=== PATIENT | female | born 1985 | race Hispanic/Latino ===

== ENCOUNTER 2021-12-17 05:18 | Emergency (ER) | payer MEDICAID ==
[2021-12-17 05:23] VITALS: BP 154/87
--- NOTE | 2021-12-17 06:27 | XRay Report ---
RIGHT FOOT, 3 VIEWS INDICATION / CLINICAL INFORMATION: INJURY 2 DAYS. COMPARISON: None available. FINDINGS: Mild hallux valgus deformity. No acute fracture or dislocation. IMPRESSION: No fracture or dislocation. Signer Name: Polly Bill MD Signed: 12/17/2021 6:22 AM Workstation Name: [id number]
== END 2021-12-17 07:45 | disposition left against medical advice (07) ==
LOC: ED 05:18
DX: M79.671 Pain in right foot (principal); Z53.21 Procedure and treatment not carried out due to patient leaving prior to being seen by health care provider